=== PATIENT | male | born 1975 ===

== ENCOUNTER 2017-07-13 05:20 | Day surgery (SDC) | payer OTHER ==
[2017-07-13] VITALS (12 sets, daily range): BP systolic 90–130; BP diastolic 50–77
[~2017-07-13] VITALS: Ht 177.8 cm; Wt 81.6 kg
[2017-07-13] MEDS ORDERED: NKM (05:54)
[2017-07-13] MEDS ORDERED: celeBREX 200mg Cap **SURGERY PATIENTS ONLY ORAL ONE ×2 (06:00→06:09)
[2017-07-13] MEDS ORDERED: oxyCONTIN 20mg tab ORAL ONE (06:00)
[2017-07-13] MEDS ORDERED: ceFAZolin 1gm in D5W 55ml IVP ONE (06:00)
--- NOTE | 2017-07-13 06:49 | Pre-Procedure Note/Attestation ---
Pre-Procedure Note/Attestation Complete Prior to Procedure Planned Procedure: right Procedure Narrative: shoulder arthroscopy, sad Indications for Procedure Pre-Operative Diagnosis: right shoulder internal derangment Attestation I attest that I discussed the nature of the procedure; its benefits; risks and complications; and alternatives (and the risks and benefits of such alternatives ), prior to the procedure, with the patient (or the patient's legal member services representative). I attest that, if there was a reasonable possibility of needing a blood transfusion, the patient (or the patient's legal member services representative) was given the [facility] standardized written summary, pursuant to the [place] Blood Safety Act ([place] Health and Safety Code # 1645, as amended). I attest that I re-evaluated the patient just prior to the surgery and that there has been no change in the patient's H&P, except as documented below: BRAYAN BELLA Jul 13, 2017 06:49
--- NOTE | 2017-07-13 06:49 | Operative Note - PDOC ---
Operative Note Operative Note Pre-op Diagnosis: right shoulder internal derangment Procedure: right shoulder Arthroscopy, sad Post-op Diagnosis: same as pre-op plus Operative Findings: consistent w/pre-op dx studies Anesthesia: regional Specimen: none Complications: none Condition: stable Estimated Blood Loss: none Implant(s) used?: No BRAYAN BELLA Jul 13, 2017 06:49
[2017-07-13] MEDS ORDERED: Tylenol #3 tab (300mg/30mg) ORAL PRN (07:00)
[2017-07-13] MEDS ORDERED: HYDROmorphone 1mg/ml Carpuject SUBQ PRN (07:00)
[2017-07-13] MEDS ORDERED: Norco 5mg/325mg tab ORAL PRN (07:00)
[2017-07-13] MEDS ORDERED: D5 1/2NS 1,000 ML IV SCH (07:00)
[2017-07-13] MEDS ORDERED: Bupivacaine w/Epi 0.25% 30ml Vial INJ ONE (07:01)
[2017-07-13] MEDS ORDERED: EPINEPHrine 1mg/1ml Amp ONE (07:02)
[2017-07-13] MEDS ORDERED: Ropivacaine 5mg/ml Vial 20ml INJ ONE (07:02)
[2017-07-13] MEDS ORDERED: NS Irrig 4000ml IRRIG ONE ×2 (07:20→07:30)
[2017-07-13] MEDS ORDERED: Succinylcholine 20mg/ml 10ml vial ONE (07:30)
[2017-07-13] MEDS ORDERED: Midazolam 2mg/2ml Inj ONE (07:30)
[2017-07-13] MEDS ORDERED: fentaNYL 100 mcg/2 mL IV ONE (07:30)
[2017-07-13] MEDS ORDERED: LR 1000ml ONE (07:30)
[2017-07-13] MEDS ORDERED: Zemuron 50mg/5ml Inj IV ONE (07:30)
[2017-07-13] MEDS ORDERED: Propofol 10mg/ml 20ml IV ONE (07:30)
[2017-07-13] MEDS ORDERED: Ketorolac 30mg Inj ONE (07:30)
[2017-07-13] MEDS ORDERED: LR 1000ml 1,000 ML IVLG SCH (08:23)
--- NOTE | 2017-07-13 08:23 | Anethesia Preoperative Eval ---
Anesthesia Pre-op PMH/ROS General Date of Evaluation: Jul 13, 2017 Time of Evaluation: 07:10 Anesthesiologist: Rodney ASA Score: ASA 2 Mallampati Score Class I : Soft palate, uvula, fauces, pillars visible Class II: Soft palate, uvula, fauces visible Class III: Soft palate, base of uvula visible Class IV: Only hard plate visible Mallampati Classification: Class II Surgeon: Gautam Diagnosis: R shoulder pain Surgical Procedure: R shoulder arthroscopy Anesthesia History: none Family History: no anesthesia problems Allergies: Coded Allergies: No Known Allergies (Unverified , 07/12/17) Medications: see eMAR Past Medical History Cardiovascular: Denies: HTN, CAD, [place], valve dz, arrhythmia, other Pulmonary: Denies: asthma, COPD, FUNMI, other Gastrointestinal/Genitourinary: Reports: GERD Neurologic/Psychiatric: Denies: dementia, CVA, depression/anxiety, TIA, other Endocrine: Denies: DM, hypothyroidism, steroids, other HEENT: Denies: cataract (L), cataract (R), glaucoma, [place] (L), [place] (R), other Hematology/Immune: Denies: anemia, DVT, bleeding disorder, other Musculoskeletal/Integumentary: Denies: OA, RA, DJD, DDD, edema, other PMH Narrative: as above PSxH Narrative: Lumbar laminectomy, knee arthroscopy Anesthesia Pre-op Phys. Exam Physician Exam Last Vital Signs Date Time Temp Pulse Resp B/P (MAP) Pulse Ox O2 Delivery O2 Flow Rate FiO2 07/13/17 05:53 97.4 61 18 130/77 100 Room Air Constitutional: NAD Neurologic: CN 2-12 intact Cardiovascular: RRR, no M/R/G Respiratory: CTA Gastrointestinal: S/NT/ND Airway Exam Mallampati Score: Class II MO: full Neck: flexible ROM: full Teeth: intact Dentures: no upper, no lower Anesthesia Pre-op A/P Labs see chart Studies Pre-op Studies: EKG - NSR Risk Assessment & Plan Assessment: ASA 2 Plan: GA with ett, sitting position, R brachial plexus block for post op pain control Status Change Before Surgery: No Pre-Antibiotics Drug: Ancef 1gr. Given Within 1 Hr of Incision: Yes Time Given: 07:56 YOBANY RAMIREZ M.D. Jul 13, 2017 08:23
[2017-07-13] MEDS ORDERED: Meperidine 25mg/0.5ml Inj (FOR RIGORS ONLY) IV PRN (08:30)
[2017-07-13] MEDS ORDERED: Midazolam 2mg/2ml Inj IVP PRN (08:30)
[2017-07-13] MEDS ORDERED: Ketorolac 30mg Inj IV PRN (08:30)
[2017-07-13] MEDS ORDERED: Metoclopramide 10mg/2ml Inj IVP PRN (08:30)
[2017-07-13] MEDS ORDERED: Hydromorphone 0.5mg/0.5ml inj IVP PRN (08:30)
[2017-07-13] MEDS ORDERED: DiphenhydrAMINE 50mg/ml Inj IVP PRN (08:30)
--- NOTE | 2017-07-13 10:40 | Immediate Post-Op Evaluation ---
Immediate Post-Op Evalulation Immediate Post-Op Evalulation Procedure: R shoulder arthroscopy subacromion decompression Date of Evaluation: Jul 13, 2017 Time of Evaluation: 08:56 IV Fluids: 1100 Blood Products: none Estimated Blood Loss: min Urinary Output: none Blood Pressure Systolic: 96 Blood Pressure Diastolic: 47 Pulse Rate: 62 Respiratory Rate: 20 O2 Sat by Pulse Oximetry: 99 Temperature (Fahrenheit): 97.8 Pain Score (1-10): 1 Nausea: No Vomiting: No Complications none Patient Status: reacts, patent, extubated, none Hydration Status: adequate YOBANY RAMIREZ M.D. Jul 13, 2017 10:40
--- NOTE | 2017-07-13 10:42 | 48 Hour Post Anesthesia Eval ---
Post Anesthesia Evaluation Procedure: R shoulder arthroscopy subacromion decompression Date of Evaluation: Jul 13, 2017 Time of Evaluation: 10:41 Blood Pressure Systolic: 114 0: 58 Pulse Rate: 72 Respiratory Rate: 20 Temperature (Fahrenheit): 98.0 O2 Sat by Pulse Oximetry: 98 Airway: patent Nausea: No Vomiting: No Pain Intensity: 1 Hydration Status: adequate Cardiopulmonary Status: stable Mental Status/LOC: patient returned to baseline Follow-up Care/Observations: n/a Post-Anesthesia Complications: none Follow-up care needed: ready to discharge YOBANY RAMIREZ M.D. Jul 13, 2017 10:42
--- NOTE | 2017-07-13 23:45 | Operative Note - Dictated ---
DATE OF OPERATION: 07/13/2017 PREOPERATIVE DIAGNOSES: 1. Right shoulder partial rotator cuff tear. 2. Right shoulder impingement syndrome. 3. Right shoulder acromioclavicular joint arthropathy. POSTOPERATIVE DIAGNOSES: 1. Partial articular-sided rotator cuff tear. 2. Subacromial impingement syndrome. 3. Acromioclavicular joint arthropathy. PROCEDURES: 1. Right shoulder arthroscopy and extensive debridement. 2. Right shoulder debridement/repair of articular-sided partial rotator cuff tear. 3. Subacromial decompression and release of the coracoclavicular ligament. SURGEON: Dani Florez M.D. ANESTHESIA: Interscalene with general. INDICATION FOR THE PROCEDURE: The patient is a pleasant 42-year-old gentleman with continued right shoulder pain. He had an MRI, which showed partial intrasubstance tear of the subscapularis as well as some AC joint arthropathy. The patient failed conservative treatment. He continued to have issues, and therefore, elected to undergo diagnostic arthroscopy and possible rotator cuff repair with concurrent subacromial decompression and bursectomy. Risks, limitations, expectations, and complications of the procedure were discussed in detail. All questions were addressed. DESCRIPTION OF PROCEDURE: An informed consent was obtained. The patient was taken to the operating room and placed the patient under general anesthesia and interscalene block. The patient was then carefully placed in a beach-chair position. Right shoulder was prepped and draped in a sterile manner. Time-out was performed. Ancef was administered. The portal sites were injected with 0.25% Marcaine with epinephrine. Inferolateral stab incision was then made. Trocar was introduced into the glenohumeral joint. There was some fraying along the anterior labrum with no gross detachment. No chondral damage. The superior labrum was intact. The biceps tendon was intact with some tendinosis but no andrew tear. No synovitis or erythema. The undersurface of the supraspinatus showed a partial rotator cuff tear. An anteromedial working portal was established and debridement/repair of the partial articular-sided rotator cuff tear was performed. Once that was done, camera was repositioned in the subacromial space. With his hypertrophic bursal tissue, lateral working portal was established. Complete bursectomy was performed. The undersurface of the acromion was identified. The acromioplasty was started from lateral to medial, completed from the posterior to anterior. Once that was completed, the bursectomy was completed in the posterior aspect of the shoulder. Once that was done, the undersurface of the acromion was identified. AC joint coplaning less than 25% of the distal aspect of the was performed. Instruments removed. Portal sites were closed using 3-0 Monocryl suture. Steri-Strips and sterile dressing were applied. The patient was awoken and taken to the recovery room with stable vital signs. EBL: Minimal. COMPLICATIONS: None. SPECIMENS: None. IMPLANTS: None. Dani Florez M.D. DR: LILLY JOB#: [id number] CC:
== END 2017-07-13 11:25 | disposition home or self-care (01) ==
LOC: SUR 05:20
DX: M75.101 Unspecified rotator cuff tear or rupture of right shoulder, not specified as traumatic (principal); M19.011 Primary osteoarthritis, right shoulder; M75.41 Impingement syndrome of right shoulder; K21.9 Gastro-esophageal reflux disease without esophagitis
CPT/HCPCS: 29826; 29827; J0171; J0330; J0690; J1885; J2250; J2405; J2704; J2795; J3010; J7120; 94003; 94150